=== PATIENT | male | born 1985 | race Hispanic/Latino ===

== ENCOUNTER → 2024-10-10 | Outpatient (REF) | payer OTHER ==
[~2024-10-10] MED LIST: DIATRIZOATE MEGL/DIATRIZOA SOD 30 ML BTL PO ONE; IOPAMIDOL 370 MG/ML 100 ML INFUS..BTL INJ ONE
[2024-10-10 09:19] LABS: CREATININE, SERUM 0.92 mg/dL (0.72-1.25)
== END ==
LOC: CT 07:24
PROVIDERS: ATTEND Nurse Practitioner
DX: R10.9 Unspecified abdominal pain (principal); K76.0 Fatty (change of) liver, not elsewhere classified; K82.4 Cholesterolosis of gallbladder
CPT/HCPCS: 36415; 74160; 76700; 78227; 82565; 84520; A9537; Q9963; Q9967